=== PATIENT | male | born 1955 | race Hispanic/Latino ===

== ENCOUNTER → 2019-01-02 | Outpatient (CLI) | payer MEDICARE, OTHER ==
[~2019-01-02] VITALS: Ht 170.2 cm; Wt 74.8 kg
[~2019-01-02] MED LIST: REGADENOSON 0.4 MG/5 ML PF SYG IVP SCH
== END | disposition home or self-care (01) ==
LOC: SHCH 08:42
PROVIDERS: ATTEND Internal Medicine Cardiovascular Disease
DX: I10 Essential (primary) hypertension (principal); E78.01 Familial hypercholesterolemia; Z82.49 Family history of ischemic heart disease and other diseases of the circulatory system
CPT/HCPCS: 78452; 93017; 96374; A9500 ×2; J2785

== ENCOUNTER 2019-04-18 06:03 | Inpatient (IN) | payer OTHER ==
[2019-04-14 11:50] VITALS: BP 179/82
[2019-04-14 11:53] LABS: BASOPHILS % (AUTO) 0.9 % (0.0-5.0); EOSINOPHILS % (AUTO) 0.6 % (0.0-8.0); HEMATOCRIT 44.5 % (42-54); LYMPHOCYTES % (AUTO) 24.2 % (21.0-51.0); MEAN CORPUSCULAR HEMOGLOBIN 35.4 pg (27.0-33.0); MEAN CORPUSCULAR HGB CONC 34.3 g/dL (32.0-36.0); MEAN CORPUSCULAR VOLUME 103.3 fL (79-99); MONOCYTES % (AUTO) 7.2 % (3.0-13.0); NEUTROPHILS % (AUTO) 67.1 % (40.0-77.0); NUCLEATED RED BLOOD CELLS 0.1 % (0.0-0.19); PLATELET COUNT (AUTO) 205 K/uL (130-400); RED BLOOD CELL COUNT(AUTO) 4.31 MIL/uL (4.50-6.20); RED CELL DISTRIBUTION WIDTH 13.6 % (11.0-15.5); WHITE BLOOD COUNT (AUTO) 9.2 K/uL (4.8-10.8)
[2019-04-14 11:56] LABS: APPEARANCE,URINE Clear (CLEAR); BILIRUBIN,URINE Negative (NEGATIVE); COLOR,URINE Yellow (YELLOW); GLUCOSE, URINE (UA) >=1000 mg/dL (NEGATIVE); KETONES,URINE Negative (NEGATIVE); LEUKOCYTE ESTERASE ,URINE Negative (NEGATIVE); NITRATE,URINE Negative (NEGATIVE); OCCULT BLOOD,URINE Negative (NEGATIVE); PROTEIN,URINE Negative (NEGATIVE); UROBILINOGEN,URINE 0.2 mg/dL (0.2-1.0)
[2019-04-14 12:02] LABS: POTASSIUM 4.5 mmol/L (3.5-5.1)
[2019-04-14 12:07] LABS: INR 0.97 (0.85-1.15); PARTIAL THROMBOPLASTIN TIME 24.7 SEC (26.3-35.5); PROTHROMBIN TIME 10.2 SEC (9.6-11.6)
[2019-04-14 12:16] LABS: BACTERIA,URINE Rare /HPF (None Seen); RBC,URINE 0-1 /HPF (0-1); SQUAMOUS EPITHELIAL CELL,UR Rare /HPF (0-2); WBC,URINE 0-1 /HPF (0-1)
[~2019-04-18] VITALS: Ht 170.2 cm; Wt 75.3 kg
[2019-04-18] VITALS (15 sets, daily range): BP systolic 115–165; BP diastolic 58–87
[~2019-04-18 06:03] MED LIST changes: +ATOR40TA71 PO; +CYAN200018 PO; +ESCI20TA36 PO; +FISH1CAP63 PO; +FOLIC ACID PO; +GABA-529 PO; +GLIM2TAB4 PO; -REGADENOSON 0.4 MG/5 ML PF SYG IVP SCH; +THIAMINE PO; +TRAM-355 PO; +[UNRECOGNIZED DRUG - OTHER] PO
[2019-04-18] MEDS ORDERED: SODIUM CHLORIDE 0.9% 1000ML 1,000 ML IV ONE (06:09)
[2019-04-18] MEDS ORDERED: BIVALIRUDIN 250 MG/VIAL IV ONE (07:16)
[2019-04-18] MEDS ORDERED: MIDAZOLAM HCL 1 MG/ML 2ML VIAL ONE (07:16)
[2019-04-18] MEDS ORDERED: NITROGLYCERIN 5 MG/ML 10 ML VIAL IV ONE (07:16)
[2019-04-18] MEDS ORDERED: IOHEXOL 350 MG/ML 100ML INFUS..BTL IV ONE (07:16)
[2019-04-18] MEDS ORDERED: IOHEXOL-350 50ML VIAL IV ONE (07:16)
[2019-04-18] MEDS ORDERED: LIDOCAINE HCL 2% 20ML ONE (07:17)
[2019-04-18] MEDS ORDERED: EMPA1TAB3 PO (07:43)
[2019-04-18] MEDS ORDERED: ASPI-555 PO (07:43)
[2019-04-18] MEDS ORDERED: MORINGA PO (07:43)
[2019-04-18] MEDS ORDERED: CHOL100046 PO (07:43)
[2019-04-18] MEDS ORDERED: LISI-613 PO (07:47)
[2019-04-18] MEDS ORDERED: IOHEXOL-350 75 ML VIAL IV ONE (08:10)
[2019-04-18] MEDS ORDERED: ADENOSINE 90MG/30ML VIAL IV ONE (08:19)
[2019-04-18] MEDS ORDERED: HEPARIN SODIUM 1000UNIT/ML 10ML VIAL ONE (08:19)
[2019-04-18] MEDS ORDERED: PRASUGREL HCL 10 MG TABLET ONE (08:48)
[2019-04-18] MEDS ORDERED: LABETALOL HCL 5 MG/ML 20ML VIAL IV ONE (09:18)
[2019-04-18] MEDS ORDERED: SODIUM CHLORIDE 0.9% 1000ML 1,000 ML IV SCH (09:40)
[2019-04-18] MEDS ORDERED: GLUCAGON 1MG KIT 1 MG ML IM PRN (09:45)
[2019-04-18] MEDS ORDERED: TRAMADOL /APAP 37.5MG/325MG TAB PO PRN (09:45)
[2019-04-18] MEDS ORDERED: DEXTROSE 50%-WATER 50 ML DISP.SYRIN IV PRN (09:45)
[2019-04-18] MEDS: INSULIN HUMULIN R 100 UNIT/ML 3ML SQ SCH ×3 (11:30→22:54)
[2019-04-18] MEDS ORDERED: SODIUM BICARB 8.4% 50ML SYRINGE IVP ONE (13:32)
[2019-04-18] MEDS ORDERED: MANNITOL 25% 50ML VIAL IV ONE (13:32)
[2019-04-18] MEDS ORDERED: PHENYLEPHRINE HCL 10 MG/ML 1ML VIAL IV ONE (13:32)
[2019-04-18] MEDS ORDERED: AMINOCAPROIC ACID 250 MG/ML 20 ML VIAL IV ONE (13:32)
[2019-04-18] MEDS ORDERED: HEPARIN SODIUM 1000UNIT/ML 10ML VIAL IV ONE (13:32)
[2019-04-18] MEDS ORDERED: CALCIUM CHLORIDE 100 MG/ML 10 ML SYG IVP ONE (13:32)
[2019-04-18] MEDS ORDERED: MAGNESIUM SULFATE 1 GM/2 ML VIAL IM ONE (13:32)
[2019-04-18] MEDS ORDERED: ALBUMIN (HUMAN) 25% 50 ML IV ONE (13:32)
--- NOTE | 2019-04-18 14:00 | NUR ---
Pt to room 223, care rendered over to [facility]. Prior to transport report called to nurse. Pt awake, alert, s any signs of distress. Dressing to right groin soft, non-tender, s any evidence of bleeding.
--- NOTE | 2019-04-18 14:00 | NUR ---
ADMIT NOTE Received from Day Surgery. Awake, alert, and oriented x3. Denies any shortness of breath or chest pain. No hematoma noted to right groin, pulses palpable. Spouse at bedside.
--- NOTE | 2019-04-18 16:00 | NUR ---
CONSULT Dr. Mary in to see pt, plan of care discussed. New orders received and will carry out.
[2019-04-18] MEDS ORDERED: CEFAZOLIN SODIUM 1 GM VIAL IVP PRN (16:30)
--- NOTE | 2019-04-18 17:00 | NUR ---
TEACHING PRE-OP CABG teaching provided, verbalized understanding. Education booklets given.
[2019-04-18 17:21] LABS: CHOLESTEROL 184 mg/dL (<200); HDL CHOLESTEROL 145 mg/dL (29-71); LDL DIRECT 105 mg/dL (0-99); TRIGLYCERIDES 509 mg/dL (30-200)
[2019-04-18 17:37] LABS: HEMOGLOBIN A1C 7.4 % (4.0-6.0)
[2019-04-18] MEDS ORDERED: ASPIRIN 81 MG EC TAB PO SCH (21:00)
--- NOTE | 2019-04-18 21:00 | NUR ---
PT RIGHT GROIN SOFT, NON TENDER. ABLE TO AMBULATE. PT DOES HAVE MINIMAL RED DRAINAGE. PENDING CABG AT 1PM TOMORROW. PT AWARE. CONSENT IN CHART. PT STABLE. ABLE TO AMBULATE. NO DISTRESS NOTED.
[2019-04-18] MEDS: ATORVASTATIN CALCIUM 40 MG TABLET PO SCH (21:12)
[2019-04-19] VITALS (51 sets, daily range): BP systolic 74–213; BP diastolic 42–89
--- NOTE | 2019-04-19 03:45 | NUR ---
SPOKE TO HOSPITALIST G[facility] TESTER REGARDING PT ADMISSION. STATED TO NOTIFY DR. MIRAMONTES IN THE AM. WILL NOTIFY INCOMING NURSE.
[2019-04-19 04:43] LABS: HEMATOCRIT 38.5 % (42-54); MEAN CORPUSCULAR HEMOGLOBIN 35.8 pg (27.0-33.0); MEAN CORPUSCULAR HGB CONC 34.3 g/dL (32.0-36.0); MEAN CORPUSCULAR VOLUME 104.2 fL (79-99); NUCLEATED RED BLOOD CELLS 0.1 % (0.0-0.19); PLATELET COUNT (AUTO) 121 K/uL (130-400); RED BLOOD CELL COUNT(AUTO) 3.69 MIL/uL (4.50-6.20); RED CELL DISTRIBUTION WIDTH 13.3 % (11.0-15.5); WHITE BLOOD COUNT (AUTO) 6.1 K/uL (4.8-10.8)
[2019-04-19 04:48] LABS: CREATININE 0.8 mg/dL (0.5-1.5); POTASSIUM 3.8 mmol/L (3.5-5.1)
[2019-04-19 04:49] LABS: INR 0.96 (0.85-1.15); PARTIAL THROMBOPLASTIN TIME 24.2 SEC (26.3-35.5); PROTHROMBIN TIME 10.1 SEC (9.6-11.6)
[2019-04-19] MEDS: INSULIN HUMULIN R 100 UNIT/ML 3ML SQ SCH (06:11)
--- NOTE | 2019-04-19 07:30 | NUR ---
ASSESSMENT ENCOUNTERED PT A&OX3, CALM COOPERATIVE AND DOES NOT APPEAR TO BE IN ANY DISTRESS NOR ANY NEURO DEFICITS PRESENT. PT DENIES PAIN, SOB, NAUSEA. RT GROIN SOFT NONTENDER WITH NO OOZING OR HEMATOMA PRESENT. DP/PT PULSES PALPABLE. PT IS AMBULATORY, GAIT STEADY AND STRONG WITH STAND BY ASSIST. PT IS NPO PENDING CABG BY DR MOORE. CALL LIGHT WITHIN REACH, FAMILY AT BEDSIDE.
[2019-04-19] MEDS ORDERED: LIDOCAINE PF 2% 5ML ABBOJECT ONE (08:54)
[2019-04-19] MEDS ORDERED: PROTAMINE SULFATE 10 MG/ML 25ML VIAL IV ONE (08:54)
[2019-04-19] MEDS ORDERED: NOREPINEPHRINE BITARTRATE 1 MG/1 ML ML IV ONE (08:54)
[2019-04-19] MEDS ORDERED: AMINOCAPROIC ACID 250 MG/ML 20 ML VIAL IV ONE (08:54)
[2019-04-19] MEDS ORDERED: SODIUM BICARB 50MEQ 50ML VIAL ONE (08:54)
[2019-04-19] MEDS ORDERED: EPINEPHRINE 1 MG/ML AMPULE ONE (08:54)
[2019-04-19] MEDS ORDERED: ESMOLOL HCL 10 MG/ML 10 ML VIAL ONE (08:54)
[2019-04-19] MEDS ORDERED: HEPARIN SODIUM 1000UNIT/ML 10ML VIAL ONE ×2 (08:54→10:33)
[2019-04-19] MEDS ORDERED: FENTANYL CITRATE PF 50 MCG/1 ML 20ML VIAL IJ ONE (08:55)
[2019-04-19] MEDS ORDERED: PROPOFOL 10 MG/ML 20ML VIAL IV ONE (08:55)
[2019-04-19] MEDS ORDERED: MIDAZOLAM HCL 1 MG/ML 2ML VIAL ONE (08:55)
[2019-04-19] MEDS ORDERED: ROCURONIUM 10MG/1ML SYR 10 MG/ML ML ONE (08:55)
[2019-04-19] MEDS ORDERED: GLIMEPIRIDE 2 MG TABLET PO SCH (09:00)
[2019-04-19] MEDS ORDERED: GLYXAMBI PO SCH (09:00)
[2019-04-19] MEDS ORDERED: OCTYL 2-CYANOACRYLATE 1 EACH TP ONE (09:05)
[2019-04-19] MEDS ORDERED: PAPAVERINE HCL 30 MG/ML 2ML VIAL ONE (09:05)
[2019-04-19] MEDS ORDERED: BACITRACIN 50,000 UNIT VIAL ONE (09:06)
[2019-04-19] MEDS ORDERED: NITROGLYCERIN 50 MG/D5% WATER 1 BOT ONE (09:06)
[2019-04-19] MEDS ORDERED: CEFAZOLIN SODIUM 1 GM VIAL ONE (09:28)
[2019-04-19] MEDS ORDERED: SODIUM CHLORIDE 0.9% 1000ML 1,000 ML IV ONE (09:28)
[2019-04-19] MEDS ORDERED: CLINDAMYCIN 900 MG/D5% WATER 50 ML IV ONE (09:31)
[2019-04-19 10:08] LABS: ABG BASE EXCESS -0.7 mmol/L (-2.0-3.0); ABG HCO3 22.3 mmol/L (21.0-28.0); ABG OXYGEN SATURATION 99.3 % (95.0-99.0); ABG PCO2 32 mmHg (35-48)
[2019-04-19] MEDS ORDERED: SODIUM CHLORIDE 0.9% 500ML 500 ML IV SCH (11:06)
[2019-04-19] MEDS ORDERED: MORPHINE SULFATE 4 MG/1ML SYG IV PRN (11:15)
[2019-04-19] MEDS ORDERED: ACETAMINOPHEN 650 MG SUPPOSITORY RC PRN (11:15)
[2019-04-19] MEDS ORDERED: NITROGLYCERIN 50 MG/D5% WATER 250 BOT IV SCH (11:15)
[2019-04-19] MEDS ORDERED: ONDANSETRON HCL 4 MG/2 ML VIAL IV PRN (11:15)
[2019-04-19] MEDS ORDERED: POTASSIUM PHOS 15 mMOL+NS250ML 250 ML IV PRN (11:15)
[2019-04-19] MEDS ORDERED: MAGNESIUM 2GM PREMIX 50ML 50 ML IV PRN (11:15)
[2019-04-19] MEDS ORDERED: AMINOCAPROIC ACID 15,000 MG in SODIUM CHLORIDE 0.9% 250 ML IV SCH (11:15)
[2019-04-19] MEDS ORDERED: DEXTROSE 50%-WATER 50 ML DISP.SYRIN IV PRN (11:15)
[2019-04-19] MEDS ORDERED: INSULIN REGULAR, HUMAN 3ML 100 UNIT in SODIUM CHLORIDE 0.9% 99 ML IV SCH ×2 (11:15)
[2019-04-19] MEDS ORDERED: MORPHINE SULFATE 2 MG/ML 1ML SYG IV PRN (11:15)
[2019-04-19] MEDS ORDERED: SODIUM CHLORIDE 0.9% 10 ML VIAL IVP PRN (11:15)
[2019-04-19] MEDS ORDERED: ACETAMINOPHEN 325 MG TAB PO PRN ×2 (11:15)
[2019-04-19] MEDS ORDERED: GLUCAGON 1MG KIT 1 MG ML IM PRN (11:15)
[2019-04-19] MEDS ORDERED: NOREPINEPHRINE 4MG/NS 250ML 250 ML IV PRN (11:15)
[2019-04-19] MEDS ORDERED: ALBUMIN (HUMAN) 5% 250 ML IV PRN (11:15)
[2019-04-19] MEDS ORDERED: SODIUM CHLORIDE 0.9% 250 ML IV PRN (11:15)
[2019-04-19] MEDS ORDERED: EPINEPHRINE 8 MG in DEXTROSE 5%-WATER 250 ML IV PRN (11:15)
[2019-04-19] MEDS ORDERED: PROPOFOL 1000 MG/100 ML 100 ML IV PRN ×2 (11:15→11:45)
[2019-04-19] MEDS ORDERED: SODIUM CHLORIDE 0.9% 1000ML 1,000 ML IV SCH (11:15)
[2019-04-19 12:00] LABS: ABG BASE EXCESS -7.1 mmol/L (-2.0-3.0); ABG HCO3 17.2 mmol/L (21.0-28.0); ABG PCO2 31 mmHg (35-48)
[2019-04-19] MEDS ORDERED: EPHEDRINE SULFATE 50 MG/ML AMPULE ONE (12:21)
--- NOTE | 2019-04-19 12:30 | NUR ---
PATIENT ARRIVED TO 213 FROM OR WITH OR RNS AND DR MIN. PATIENT CONNECTED TO VENT AT ORDERED SETTINGS. ETT 7.5 AT 22CM. ASSESSED PER CHARTING. CT X2 TO 1 ATRIUM WITH 60ML DRAINAGE PRESENT ON ARRIVAL. HENRY CATHETER PATENT AND DRAINING. PATIENT CONTINUED ON EPI 0.05MCG/KG/MIN AND LEVO 4MCG/MIN FROM OR. ALBUMIN GIVEN ON ARRIVAL FOR LOW BP. MONITORS CONNECTED, ALARMS SET AND ALARMS AUDIBLE. BED LOCKED AND LOW. PENDING LABS, ABG AND CXR.
[2019-04-19 13:00] LABS: HEMATOCRIT 25.7 % (42-54); MEAN CORPUSCULAR HEMOGLOBIN 35.2 pg (27.0-33.0); MEAN CORPUSCULAR HGB CONC 33.6 g/dL (32.0-36.0); MEAN CORPUSCULAR VOLUME 104.9 fL (79-99); PLATELET COUNT (AUTO) 102 K/uL (130-400); RED BLOOD CELL COUNT(AUTO) 2.45 MIL/uL (4.50-6.20); RED CELL DISTRIBUTION WIDTH 13.3 % (11.0-15.5)
[2019-04-19 13:07] LABS: ABG BASE EXCESS -1.5 mmol/L (-2.0-3.0); ABG HCO3 21.5 mmol/L (21.0-28.0); ABG OXYGEN SATURATION 98.5 % (95.0-99.0); ABG PCO2 30 mmHg (35-48)
[2019-04-19 13:09] LABS: CREATININE 0.7 mg/dL (0.5-1.5); MAGNESIUM 1.6 mg/dL (1.80-2.40); PHOSPHORUS 4.1 mg/dL (2.5-4.9); POTASSIUM 3.6 mmol/L (3.5-5.1)
[2019-04-19] MEDS: POTASSIUM CHLORIDE 20MEQ/100ML 100 ML IV PRN ×5 (13:14→22:23)
[2019-04-19] MEDS: SODIUM BICARB 50MEQ 50ML VIAL IV PRN ×5 (13:14→15:44)
[2019-04-19 13:16] LABS: INR 1.42 (0.85-1.15); PARTIAL THROMBOPLASTIN TIME 25.1 SEC (26.3-35.5); PROTHROMBIN TIME 14.7 SEC (9.6-11.6)
[2019-04-19] MEDS: CALCIUM GLUCONATE 1 GM in SODIUM CHLORIDE 0.9% 50 ML IV PRN ×3 (13:22→22:23)
--- NOTE | 2019-04-19 13:35 | NUR ---
PATIENT'S FAMILY IN FOR VISIT. DISCUSSED CURRENT SITUATION, PLAN OF CARE AND UNIT POLICIES. ALL QUESTIONS ANSWERED. PATIENT'S JOLENE SCHULTE WILL BE SPOKESPERSON. [phone] OR [phone]. FAMILY PRAYING WITH PATIENT. WILL RETURN TOMORROW.
[2019-04-19 14:06] LABS: ABG BASE EXCESS -3.3 mmol/L (-2.0-3.0); ABG HCO3 19.9 mmol/L (21.0-28.0); ABG PCO2 31 mmHg (35-48)
--- NOTE | 2019-04-19 14:35 | NUR ---
AFTER TITRATING DRIPS FOR BP AND CHECKING ABG/ADMINISTERING BICARB, PATIENT CONTINUES TO HAVE LOW BP. DR TERESA MCCABE.
[2019-04-19] MEDS ORDERED: ALBUMIN (HUMAN) 5% 250 ML IV ONE (14:37)
--- NOTE | 2019-04-19 14:59 | NUR ---
DR MOORE UPDATED. 1UNIT PRBC TO BE TRANSFUSED NOW.
[2019-04-19 15:36] LABS: ABG HCO3 19.7 mmol/L (21.0-28.0); ABG PCO2 35 mmHg (35-48)
[2019-04-19 18:11] LABS: ABG BASE EXCESS 2.2 mmol/L (-2.0-3.0); ABG HCO3 24.6 mmol/L (21.0-28.0); ABG OXYGEN SATURATION 98.3 % (95.0-99.0); ABG PCO2 32 mmHg (35-48)
--- NOTE | 2019-04-19 18:19 | NUR ---
DR MOORE UPDATED ON CURRENT VS, DRIPS AND LABS AFTER TRANSFUSIONS COMPLETED. NO NEW ORDERS AT THIS TIME.
[2019-04-19] MEDS ORDERED: CALCIUM GLUCONATE 1 GM/10 ML VIAL IV ONE ×2 (19:20→22:21)
[2019-04-19] MEDS: CLINDAMYCIN 900 MG/D5% WATER 50 ML IV SCH (19:23)
[2019-04-19 19:59] LABS: ABG BASE EXCESS 4.7 mmol/L (-2.0-3.0); ABG HCO3 27.4 mmol/L (21.0-28.0); ABG OXYGEN SATURATION 98.3 % (95.0-99.0); ABG PCO2 35 mmHg (35-48)
[2019-04-19] MEDS: FAMOTIDINE/PF 20 MG/2 ML VIAL IV SCH (20:20)
[2019-04-19] MEDS: ATORVASTATIN CALCIUM 40 MG TABLET PO SCH (20:21)
[2019-04-19] MEDS ORDERED: LISINOPRIL 10 MG TABLET PO SCH (21:00)
[2019-04-19 22:16] LABS: ABG BASE EXCESS 6.2 mmol/L (-2.0-3.0); ABG HCO3 28.8 mmol/L (21.0-28.0); ABG OXYGEN SATURATION 98.2 % (95.0-99.0); ABG PCO2 34 mmHg (35-48)
[2019-04-20] VITALS (46 sets, daily range): BP systolic 102–177; BP diastolic 54–102
[2019-04-20 00:42] LABS: ABG BASE EXCESS 3.6 mmol/L (-2.0-3.0); ABG HCO3 25.1 mmol/L (21.0-28.0); ABG OXYGEN SATURATION 98.9 % (95.0-99.0); ABG PCO2 30 mmHg (35-48)
[2019-04-20 01:44] LABS: ABG HCO3 27.6 mmol/L (21.0-28.0); ABG OXYGEN SATURATION 98.8 % (95.0-99.0); ABG PCO2 38 mmHg (35-48)
[2019-04-20 03:41] LABS: ABG BASE EXCESS 4.4 mmol/L (-2.0-3.0); ABG HCO3 29.1 mmol/L (21.0-28.0); ABG OXYGEN SATURATION 98.2 % (95.0-99.0); ABG PCO2 43 mmHg (35-48)
[2019-04-20] MEDS: CLINDAMYCIN 900 MG/D5% WATER 50 ML IV SCH ×2 (03:43→11:02)
[2019-04-20 04:41] LABS: HEMATOCRIT 31.7 % (42-54); MEAN CORPUSCULAR HGB CONC 35.9 g/dL (32.0-36.0); PLATELET COUNT (AUTO) 113 K/uL (130-400); RED BLOOD CELL COUNT(AUTO) 3.45 MIL/uL (4.50-6.20); RED CELL DISTRIBUTION WIDTH 18.2 % (11.0-15.5)
[2019-04-20 04:57] LABS: POTASSIUM 3.6 mmol/L (3.5-5.1)
[2019-04-20 05:02] LABS: INR 0.98 (0.85-1.15); PARTIAL THROMBOPLASTIN TIME 24.4 SEC (26.3-35.5); PROTHROMBIN TIME 10.3 SEC (9.6-11.6)
[2019-04-20 05:12] LABS: CREATININE 0.7 mg/dL (0.5-1.5); MAGNESIUM 2.2 mg/dL (1.80-2.40); PHOSPHORUS 4.8 mg/dL (2.5-4.9)
[2019-04-20] MEDS: TRAMADOL HCL 50 MG TABLET PO PRN ×3 (05:37→22:38)
[2019-04-20] MEDS ORDERED: CALCIUM GLUCONATE 1 GM/10 ML VIAL IV ONE (06:11)
[2019-04-20] MEDS: CALCIUM GLUCONATE 1 GM in SODIUM CHLORIDE 0.9% 50 ML IV PRN (06:16)
[2019-04-20] MEDS: POTASSIUM CHLORIDE 20MEQ/100ML 100 ML IV PRN (06:17)
[2019-04-20] MEDS: ASPIRIN 325MG EC TAB 325 MG TABLET.DR PO SCH (08:07)
[2019-04-20] MEDS: FUROSEMIDE 10 MG/ML 2ML VIAL IV SCH ×2 (08:07→21:39)
[2019-04-20] MEDS: FAMOTIDINE/PF 20 MG/2 ML VIAL IV SCH ×2 (08:10→21:39)
[2019-04-20] MEDS ORDERED: 1/2 NORMAL SALINE 1,000 ML IV SCH (09:00)
[2019-04-20] MEDS ORDERED: PHARMACY COMMUNICATION MISC SCH (09:00)
--- NOTE | 2019-04-20 09:50 | NUR ---
FAMILY MEMBERS HERE AND PT THERAPIST AT BEDSIDE AND PT TOLERATED MINIMAL ACTIVITY.
--- NOTE | 2019-04-20 13:15 | NUR ---
WERE ADVISED TO LEAVE AND COME BACK LATER IN ORDER TO LET PATIENT TO REST. FAMILY MEMBERS ACKNOWLEDGED UNDERSTANDING AND WILL RETURN LATER.
--- NOTE | 2019-04-20 15:12 | NUR ---
DC PLAN PATIENT LIVES WITH SPOUSE. INDEPENDENT ABLE TO PERFORM ADL'S. PATIENT HAS NO SERVICES OR DME'S. FEELS SAFE TO RETURN HOME. Addendum: 04/20/19 at 1513 by ALBERTO ZAMBRANO RN CM Amended: Links added.
--- NOTE | 2019-04-20 19:30 | NUR ---
ASSESSMENT: PT AAOX3, COOPERATIVE, FOLLOWING COMMANDS AND RESPONDS APPROPRIATELY. AT BEDSIDE. ASSESSMENT COMPLETED, SEE FLOW SHEET. WHITE BOARD UP-DATED. BEDSIDE MONITOR PARAMETERS REVIEWED AND SET. SHAINA REVIEWED AND WITHIN REACH.
[2019-04-20] MEDS: ATORVASTATIN CALCIUM 40 MG TABLET PO SCH (21:38)
[2019-04-20] MEDS: METOPROLOL TARTRATE 25 MG TAB PO SCH (21:39)
[2019-04-21] VITALS (24 sets, daily range): BP systolic 105–141; BP diastolic 51–81
[2019-04-21 04:21] LABS: HEMATOCRIT 26.6 % (42-54); MEAN CORPUSCULAR HEMOGLOBIN 33.3 pg (27.0-33.0); MEAN CORPUSCULAR HGB CONC 35.3 g/dL (32.0-36.0); MEAN CORPUSCULAR VOLUME 94.3 fL (79-99); NUCLEATED RED BLOOD CELLS 0.1 % (0.0-0.19); PLATELET COUNT (AUTO) 99 K/uL (130-400); RED BLOOD CELL COUNT(AUTO) 2.82 MIL/uL (4.50-6.20); RED CELL DISTRIBUTION WIDTH 17.6 % (11.0-15.5); WHITE BLOOD COUNT (AUTO) 10.2 K/uL (4.8-10.8)
[2019-04-21 04:46] LABS: CREATININE 0.7 mg/dL (0.5-1.5); POTASSIUM 3.3 mmol/L (3.5-5.1)
[2019-04-21] MEDS: POTASSIUM CHLORIDE 20MEQ/100ML 100 ML IV PRN ×3 (05:14→08:48)
--- NOTE | 2019-04-21 07:04 | NUR ---
BEDSIDE REPORT BEDSIDE REPORT GIVEN TO CLAUDIA RN AND GALDINO ROLAND. CARE ENDORSED.
[2019-04-21] MEDS: FUROSEMIDE 20 MG TABLET PO SCH ×2 (08:46→17:45)
[2019-04-21] MEDS: FAMOTIDINE/PF 20 MG/2 ML VIAL IV SCH ×2 (08:46→20:42)
[2019-04-21] MEDS: ASPIRIN 325MG EC TAB 325 MG TABLET.DR PO SCH (08:46)
[2019-04-21] MEDS: METOPROLOL TARTRATE 25 MG TAB PO SCH ×2 (08:47→20:42)
[2019-04-21] MEDS ORDERED: METOPROLOL TARTRATE 25 MG TAB PO SCH (09:00)
[2019-04-21] MEDS: TRAMADOL HCL 50 MG TABLET PO PRN ×2 (09:46→17:45)
[2019-04-21] MEDS: INSULIN HUMULIN R 100 UNIT/ML 3ML SQ SCH ×3 (12:21→20:52)
[2019-04-21 13:49] LABS: MAGNESIUM 2.1 mg/dL (1.80-2.40); POTASSIUM 4.6 mmol/L (3.5-5.1)
[2019-04-21] MEDS: ATORVASTATIN CALCIUM 40 MG TABLET PO SCH (20:42)
--- NOTE | 2019-04-22 00:03 | NUR ---
REPORT REPORT GIVEN TO RADHA ROLAND. CARE AND ORDERS ENDORSED. PT TRANSFERRED AT 0002 VIA CARDIAC CHAIR TO ROOM 229. AT BEDSIDE.
--- NOTE | 2019-04-22 00:30 | NUR ---
Patient transferred from ICU Patient alert and oriented. Resting in bed, at bedside. Denies pain or sob at this time. Midsternal dressing in place, CDI. Chest tubes in place with little serous output. Patient due to void. Caldera removed in icu prior to transfer and R IJ removed. Dressing to IJ will small amount of blood. will continue to monitor.
[2019-04-22 04:03] LABS: BASOPHILS % (AUTO) 0.1 % (0.0-5.0); EOSINOPHILS % (AUTO) 0.3 % (0.0-8.0); HEMATOCRIT 25.2 % (42-54); LYMPHOCYTES % (AUTO) 15.1 % (21.0-51.0); MEAN CORPUSCULAR HEMOGLOBIN 33.1 pg (27.0-33.0); MEAN CORPUSCULAR HGB CONC 35.2 g/dL (32.0-36.0); MEAN CORPUSCULAR VOLUME 93.9 fL (79-99); NEUTROPHILS % (AUTO) 76.5 % (40.0-77.0); NUCLEATED RED BLOOD CELLS 0.1 % (0.0-0.19); PLATELET COUNT (AUTO) 112 K/uL (130-400); RED BLOOD CELL COUNT(AUTO) 2.69 MIL/uL (4.50-6.20); RED CELL DISTRIBUTION WIDTH 17.1 % (11.0-15.5); WHITE BLOOD COUNT (AUTO) 8.4 K/uL (4.8-10.8)
[2019-04-22 04:18] LABS: CREATININE 0.8 mg/dL (0.5-1.5); POTASSIUM 3.3 mmol/L (3.5-5.1)
[2019-04-22 04:44] VITALS: BP 132/70
[2019-04-22] MEDS ORDERED: POTASSIUM CHLORIDE 10% ELIXIR 20 MEQ/15 ML UDCUP PO PRN (05:30)
--- NOTE | 2019-04-22 06:00 | NUR ---
patient voided x 3 post oconnor removal. Dressing on neck saturated after patient coughed. Dressing changed.
[2019-04-22] MEDS: INSULIN HUMULIN R 100 UNIT/ML 3ML SQ SCH ×4 (06:13→21:08)
[2019-04-22] MEDS: POTASSIUM CHLORIDE 20 MEQ ERTAB PO PRN (06:14)
[2019-04-22 07:45] VITALS: BP 125/71
[2019-04-22] MEDS: FAMOTIDINE/PF 20 MG/2 ML VIAL IV SCH ×2 (09:37→21:06)
[2019-04-22] MEDS: ASPIRIN 325MG EC TAB 325 MG TABLET.DR PO SCH (09:38)
[2019-04-22] MEDS: ENOXAPARIN SODIUM 30 MG/0.3 ML SQ SCH (09:39)
[2019-04-22] MEDS: TRAMADOL HCL 50 MG TABLET PO PRN ×3 (10:36→23:26)
[2019-04-22 11:20] VITALS: BP 124/64
[2019-04-22] MEDS: METOPROLOL TARTRATE 25 MG TAB PO SCH ×2 (14:17→21:09)
[2019-04-22 15:15] VITALS: BP 112/68
[2019-04-22 20:28] VITALS: BP 132/75
[2019-04-22] MEDS: ATORVASTATIN CALCIUM 40 MG TABLET PO SCH (21:06)
--- NOTE | 2019-04-23 | NUR ---
FLUID RESTRICTION PATIENT EDUCATED ON FLUID RESTRICTIONS AND BENEFITS OF ADHERING TO SAID DAILY FLUID RESTRICTIONS SIGN PLACED ON DOOR FRAME PT VERBALIZED UNDERSTANDING 4 PS ADDRESSED
[2019-04-23 00:10] VITALS: BP 129/67
[2019-04-23 04:30] LABS: HEMATOCRIT 25.1 % (42-54); MEAN CORPUSCULAR HEMOGLOBIN 33.4 pg (27.0-33.0); MEAN CORPUSCULAR HGB CONC 35.3 g/dL (32.0-36.0); MEAN CORPUSCULAR VOLUME 94.4 fL (79-99); PLATELET COUNT (AUTO) 116 K/uL (130-400); RED BLOOD CELL COUNT(AUTO) 2.66 MIL/uL (4.50-6.20); RED CELL DISTRIBUTION WIDTH 16.5 % (11.0-15.5); WHITE BLOOD COUNT (AUTO) 7.1 K/uL (4.8-10.8)
[2019-04-23 04:41] LABS: CREATININE 0.6 mg/dL (0.5-1.5); POTASSIUM 3.2 mmol/L (3.5-5.1)
[2019-04-23 05:20] VITALS: BP 135/74
[2019-04-23] MEDS: POTASSIUM CHLORIDE 20 MEQ ERTAB PO PRN ×3 (05:42→15:28)
[2019-04-23] MEDS: INSULIN HUMULIN R 100 UNIT/ML 3ML SQ SCH ×4 (06:33→21:27)
[2019-04-23] MEDS ORDERED: METO-391 PO (07:24)
[2019-04-23] MEDS ORDERED: EZET10TA48 PO (07:40)
[2019-04-23 07:58] VITALS: BP 136/72
[2019-04-23] MEDS: ASPIRIN 325MG EC TAB 325 MG TABLET.DR PO SCH (09:23)
[2019-04-23] MEDS: ENOXAPARIN SODIUM 30 MG/0.3 ML SQ SCH (09:23)
[2019-04-23] MEDS: FAMOTIDINE/PF 20 MG/2 ML VIAL IV SCH ×2 (09:23→20:36)
[2019-04-23] MEDS: METOPROLOL TARTRATE 25 MG TAB PO SCH ×3 (09:29→20:35)
[2019-04-23 11:24] VITALS: BP 131/76
[2019-04-23 15:38] VITALS: BP 131/73
[2019-04-23] MEDS: TRAMADOL HCL 50 MG TABLET PO PRN (17:57)
[2019-04-23] MEDS: ATORVASTATIN CALCIUM 40 MG TABLET PO SCH (20:36)
[2019-04-23 20:44] VITALS: BP 141/82
[2019-04-24 00:47] VITALS: BP 144/77
[2019-04-24 04:08] VITALS: BP 141/73
[2019-04-24] MEDS: INSULIN HUMULIN R 100 UNIT/ML 3ML SQ SCH ×2 (06:00→11:37)
--- NOTE | 2019-04-24 08:15 | NUR ---
AM ASSESSMENT PT SITTING IN CARDIAC RECLINER, RESTING. A/O X 3. NO SOB. NO DISTRESS NOTED. DENIES CHEST PAIN OR DISCOMFORT. DENIES PALPITATIONS. DENIES INCISIONAL PAIN. TELE: STACH 100s. STERNAL INCISION WELL APPROX, NO DRAINAGE NOTED. STERNAL PRECAUTIONS REINFORCED. DENIES N/V AND/OR DIARRHEA. IS 750 ML. UP W/ASSISTANCE. INSTRUCTED TO CALL FOR ASSISTANCE. CALL [facility] W/IN REACH.
[2019-04-24 08:17] VITALS: BP 137/77
[2019-04-24] MEDS: ASPIRIN 325MG EC TAB 325 MG TABLET.DR PO SCH (08:19)
[2019-04-24] MEDS: METOPROLOL TARTRATE 25 MG TAB PO SCH (08:19)
[2019-04-24] MEDS: ENOXAPARIN SODIUM 30 MG/0.3 ML SQ SCH (08:19)
[2019-04-24] MEDS ORDERED: FAMOTIDINE 20MG TAB 20 MG TAB PO SCH (09:00)
[2019-04-24] MEDS: TRAMADOL HCL 50 MG TABLET PO PRN (11:47)
[2019-04-24 11:59] VITALS: BP 126/84
--- NOTE | 2019-04-24 13:10 | NUR ---
GIVEN DISMISSAL INSTRUCTIONS AND SCRIPTS TO PATIENT AND HIS , JOLENE SCHULTE. VERBALIZED UNDERSTANDING. REMOVED SUTURES X2, APPLIED STERI STRIPS. REMOVED TELE PACK. REMOVED SALINE LOCK FROM LEFT WRIST AREA, IV SITE WITHOUT REDNESS NOTED. AWAITING FOR FAMILY MEMBER TO TAKE THEM HOME. REPORTED OF TO PRIMARY CARE NURSE, DAHLIA.
--- NOTE | 2019-04-24 13:41 | NUR ---
DC PLAN PATIENT DISCHARGED HOME. SENT PACKET TO [facility] REGARDING OUTPATIENT THERAPY IN [place]. PATIENT [place] HAVE TO GO [facility] TO [facility] [place]. PATIENT AMBULATING 400FT AT THIS TIME. Addendum: 04/24/19 at 1343 by ALBERTO ZAMBRANO RN CM Amended: Links added.
--- NOTE | 2019-04-24 13:45 | NUR ---
DISCHARGE NOTIFIED BY P FAMILY HERE TO TAKE PT HOME. PT TAKEN TO PRIVATE VEHICLE VIA WC BY Yang JONES PCP, ACCOMPANIED BY SPOUSE. NO DISTRESS NOTED.
== END 2019-04-24 13:45 | disposition home or self-care (01) | DRG 233 ==
LOC: DAH 06:03 → DAHIP 06:04 → EDBD 10:00 → 2DH 14:41 → 2AH 21:57 → 2DH 22:23 → 2CV 04-19 09:22 → 2CH 04-20 17:30 → 2AH 04-21 23:40
PROVIDERS: ADMIT Internal Medicine; ATTEND Internal Medicine
PROC: 4A023N7 Measurement of Cardiac Sampling and Pressure, Left Heart, Percutaneous Approach (ICD-10-PCS; principal; 2019-04-18)
PROC: 02JA3ZZ Inspection of Heart, Percutaneous Approach (ICD-10-PCS; 2019-04-18)
PROC: B2111ZZ Fluoroscopy of Multiple Coronary Arteries using Low Osmolar Contrast (ICD-10-PCS; 2019-04-18)
PROC: B2151ZZ Fluoroscopy of Left Heart using Low Osmolar Contrast (ICD-10-PCS; 2019-04-18)
PROC: 4A033BC Measurement of Arterial Pressure, Coronary, Percutaneous Approach (ICD-10-PCS; 2019-04-18)
PROC: 06BQ4ZZ Excision of Left Saphenous Vein, Percutaneous Endoscopic Approach (ICD-10-PCS; 2019-04-19)
PROC: 02100Z9 Bypass Coronary Artery, One Artery from Left Internal Mammary, Open Approach (ICD-10-PCS; 2019-04-19 13:00)
PROC: 021109W Bypass Coronary Artery, Two Arteries from Aorta with Autologous Venous Tissue, Open Approach (ICD-10-PCS; 2019-04-19 13:00)
PROC: 30233R1 Transfusion of Nonautologous Platelets into Peripheral Vein, Percutaneous Approach (ICD-10-PCS; 2019-04-20)
PROC: 30233N1 Transfusion of Nonautologous Red Blood Cells into Peripheral Vein, Percutaneous Approach (ICD-10-PCS; 2019-04-20)
DX: I25.10 Atherosclerotic heart disease of native coronary artery without angina pectoris (principal); I50.31 Acute diastolic (congestive) heart failure; D62 Acute posthemorrhagic anemia; F43.10 Post-traumatic stress disorder, unspecified; F10.10 Alcohol abuse, uncomplicated; E78.5 Hyperlipidemia, unspecified; E11.9 Type 2 diabetes mellitus without complications; E78.00 Pure hypercholesterolemia, unspecified; E78.1 Pure hyperglyceridemia; I11.0 Hypertensive heart disease with heart failure; Z88.0 Allergy status to penicillin; Z79.82 Long term (current) use of aspirin; Z79.899 Other long term (current) drug therapy; Z83.3 Family history of diabetes mellitus; Z82.49 Family history of ischemic heart disease and other diseases of the circulatory system
CPT/HCPCS: 36415; 36430; 71045; 80048; 80061; 81001; 82330; 82435; 82803; 82947; 82948; 83036; 83605; 83735; 83880; 84100; 84132; 84295; 85018; 85025; 85027; 85347; 85610; 85730; 86850; 86900; 86901; 86922; 92920; 93005; 93306; 93458; 93571; 93880; 94002; 94003; 94010; 94150; 97039; A4606; A7048; C1760; C1769; C1887; C1894; G0378; J0153; J0171; J0583; J0610; J0690; J1644; J1650; J1815; J1940; J2001; J2150; J2250; J2370; J2440; J2704; J2720; J3010; J3475; J3480; J3490; J7030; J7040; J7060; P9016; P9034; P9045; P9047; Q9967